=== PATIENT | male | born 1980 | race African-American/Black ===

== ENCOUNTER 2018-02-19 10:28 | Inpatient (IN) ==
[2018-02-19] MEDS ORDERED: MAGNESIUM HYDROXIDE SUSP 30 ML UDCUP PO PRN (13:06)
[2018-02-19] MEDS ORDERED: traMADol 50 MG TABLET PO PRN (13:06)
[2018-02-19] MEDS ORDERED: BISACODYL 5 MG TABLET PO PRN (13:06)
[2018-02-19] MEDS ORDERED: PROMETHAZINE 12.5 MG SUPP RECTAL PRN (13:06)
[2018-02-19] MEDS ORDERED: ONDANSETRON 4 MG/2 ML VIAL IV PRN (13:06)
[2018-02-19] MEDS ORDERED: ACETAMINOPHEN 325 MG TABLET PO PRN ×2 (13:06→13:08)
[2018-02-19] MEDS ORDERED: PROMETHAZINE 25 MG/1 ML VIAL IM PRN (13:06)
[2018-02-19] MEDS ORDERED: PROMETHAZINE 25 MG TABLET PO PRN (13:06)
[2018-02-19] MEDS ORDERED: diphenhydrAMINE CAP 25 MG CAPSULE PO PRN (13:10)
[2018-02-19] MEDS ORDERED: SODIUM CHLORIDE 0.9% 1,000 ML IV PRN (13:10)
[2018-02-19 15:05] LABS: % Iron Saturation 12.5 % (18-50); Ferritin 244.7 ng/ml (26-388)
[2018-02-19] MEDS ORDERED: LIDOCAINE/PRILOCAINE CREAM 5 GM TUBE TOP ONE (15:21)
[2018-02-19] MEDS: SEVELAMER CARBONATE 800 MG TABLET PO SCH (18:12)
[2018-02-19] MEDS: hydrALAZINE 25 MG TABLET PO SCH (18:13)
[2018-02-19] MEDS: SIMVASTATIN 10 MG TABLET PO SCH (22:54)
[2018-02-20] MEDS: hydrALAZINE 25 MG TABLET PO SCH ×3 (08:16→18:42)
[2018-02-20] MEDS: SEVELAMER CARBONATE 800 MG TABLET PO SCH ×3 (08:16→16:38)
[2018-02-20] MEDS: LOSARTAN/HCTZ 50-12.5 MG TABLET PO SCH (08:16)
[2018-02-20] MEDS: PANTOPRAZOLE 40 MG TABLET PO SCH (08:16)
[2018-02-20 12:56] LABS: Hepatitis A Ab IgM Quant 0.14 Index; Hepatitis A Ab IgM Result Negative (Negative); Hepatitis B Core IgM Quant 0.13 Index; Hepatitis B Core IgM Result Negative (Negative); Hepatitis B Surface Ag Quant < 0.10 Index; Hepatitis B Surface Ag Result Negative (Negative); Hepatitis C Virus Ab Quant 0.25 Index; Hepatitis C Virus Ab Result Negative (Negative)
[2018-02-20] MEDS: SIMVASTATIN 10 MG TABLET PO SCH (22:37)
[2018-02-21] MEDS ORDERED: LIDOCAINE/PRILOCAINE CREAM 5 GM TUBE TOP ONE (08:10)
[2018-02-21] MEDS: hydrALAZINE 25 MG TABLET PO SCH ×2 (10:30→14:22)
[2018-02-21] MEDS: LOSARTAN/HCTZ 50-12.5 MG TABLET PO SCH (11:42)
[2018-02-21] MEDS ORDERED: EPOETIN ALFA 10,000 UNIT/1 ML VIAL IV PRN (12:00)
[2018-02-21] MEDS ORDERED: IRON SUCROSE 100 MG/5 ML VIAL IV SCH (12:00)
[2018-02-21] MEDS: PANTOPRAZOLE 40 MG TABLET PO SCH (16:22)
[2018-02-21] MEDS: SEVELAMER CARBONATE 800 MG TABLET PO SCH (16:25)
[2018-02-21 17:25] VITALS: BP 186/99
== END 2018-02-21 16:40 | disposition home or self-care (01) | DRG 682 ==
LOC: N.5E 13:36
PROVIDERS: ADMIT Internal Medicine Nephrology; ATTEND Internal Medicine Nephrology

== ENCOUNTER 2020-01-29 23:42 | Inpatient (IN) ==
[2020-01-29] MEDS ORDERED: ACETAMINOPHEN 500 MG TABLET PO STA (23:50)
[2020-01-29] MEDS ORDERED: ACETAMINOPHEN 500 MG TABLET ONE (23:51)
[2020-01-30 00:22] LABS: Basophils # 0.1 10*3/uL (0.0-0.2); Basophils % 0.3 % (0.0-0.8); Eosinophils % 0.1 % (0.00-10.9); Hematocrit 22.1 VOL% (42.0-52.0); Immature Granulocytes % 1.2 %; Immature Granulocytes Absolute 0.29 #; Lymphocytes # 1.1 10*3/uL (1.4-4.0); Lymphocytes % 4.4 % (21.2-54.2); Mean Corpuscular HGB Conc 31.7 GM/DL (32-36); Mean Corpuscular Volume 90.9 FL (87-102); Mean Platelet Volume 9.6 FL (9.6-12.0); Monocytes % 4.1 % (1.7-12.7); Neutrophils % 89.9 % (38.7-73.9); Platelet Count 314 T/CUMM (130-400); Red Blood Count 2.43 MC/CUMM (3.8-5.5); Red Cell Distribution Width 16.4 % (9.3-17.3); White Blood Count 24.4 T/CUMM (4-12)
[2020-01-30] MEDS ORDERED: LEVOFLOXACIN INJ 500 MG in PREMIX 1 EACH IV STA (00:25)
[2020-01-30 00:41] LABS: PT Patient Result 10.8 SECS (9.8-11.9)
[2020-01-30 01:06] LABS: Albumin 2.5 G/DL (3.4-5.0); Bilirubin,Total 0.5 MG/DL (0.2-1.0); Calcium 9.3 MG/DL (8.5-10.1); Ferritin 3882.8 ng/ml (26-388); Potassium 3.7 MMOL/L (3.5-5.1); Total Protein 8.7 G/DL (6.4-8.3)
[2020-01-30] MEDS ORDERED: hydrALAZINE 20 MG/1 ML VIAL IV STA (01:14)
[2020-01-30] MEDS ORDERED: diphenhydrAMINE CAP 25 MG CAPSULE PO PRN (01:52)
[2020-01-30] MEDS ORDERED: ONDANSETRON 4 MG/2 ML VIAL IV PRN (01:52)
[2020-01-30] MEDS ORDERED: guaiFENesin/DM ER 600-30 MG TABLET PO PRN (01:52)
[2020-01-30] MEDS ORDERED: MORPHINE 4 MG/1 ML VIAL IV PRN (01:52)
[2020-01-30] MEDS ORDERED: DEXTROSE 50% 25 GM/50 ML VIAL IV PRN (01:52)
[2020-01-30] MEDS ORDERED: GLUCAGON 1 MG VIAL IM PRN (01:52)
[2020-01-30] MEDS ORDERED: NICOTINE 21 MG/24 HR PATCH TRANSDERM PRN (01:52)
[2020-01-30 02:01] LABS: Lymphocytes 6 % (20-55); Segmented Neutrophils 92 % (50-85); Total Cells Counted 100
[2020-01-30 02:02] LABS: Hypochromasia 1+; Platelet Estimate Increased
[2020-01-30 02:03] LABS: Microcytosis 1+
[2020-01-30 02:06] LABS: Polychromasia Slight; Stomatocytes Slight; Target Cells Few
[2020-01-30] MEDS ORDERED: PIPERACILLIN/TAZOBACTAM 3,375 MG in SODIUM CHLORIDE 0.9% 100 ML IV SCH (02:30)
[2020-01-30] MEDS: hydrALAZINE 20 MG/1 ML VIAL IV PRN (03:40)
[2020-01-30] MEDS: ACETAMINOPHEN 325 MG TABLET PO PRN (03:45)
[2020-01-30] MEDS ORDERED: SODIUM CHLORIDE 0.9% 1,000 ML IV PRN (06:20)
[2020-01-30] MEDS ORDERED: AZITHROMYCIN INJ 500 MG in SODIUM CHLORIDE 0.9% 250 ML IV SCH (06:30)
[2020-01-30] MEDS: cefTRIAXone 1,000 MG in SYRINGE 1 EACH IV SCH (09:24)
[2020-01-30] MEDS: AZITHROMYCIN 250 MG TABLET PO SCH (09:24)
[2020-01-30] MEDS: ACETYLCYSTEINE 20% 800 MG/4 ML VIAL RESP TX SCH ×2 (17:42→23:57)
[2020-01-30] MEDS: ALBUTEROL 2.5 MG/3 ML NEB RESP TX SCH ×3 (17:42→23:57)
[2020-01-30] MEDS: ENOXAPARIN 120 MG/0.8 ML SYRINGE SUBCUT SCH (17:45)
[2020-01-30] MEDS ORDERED: ALPRAZolam 0.5 MG TABLET PO ONE (19:59)
[2020-01-31] MEDS: ALBUTEROL 2.5 MG/3 ML NEB RESP TX SCH ×7 (03:09→23:41)
[2020-01-31] MEDS: ACETAMINOPHEN 325 MG TABLET PO PRN ×2 (04:14→14:28)
[2020-01-31] MEDS: ACETYLCYSTEINE 20% 800 MG/4 ML VIAL RESP TX SCH ×3 (07:16→23:41)
[2020-01-31] MEDS: cefTRIAXone 1,000 MG in SYRINGE 1 EACH IV SCH (08:14)
[2020-01-31] MEDS: AZITHROMYCIN 250 MG TABLET PO SCH (08:14)
[2020-01-31] MEDS ORDERED: SODIUM CHLORIDE 0.9% 1,000 ML IV PRN (09:06)
[2020-01-31] MEDS ORDERED: VANCOMYCIN INJ 1,000 MG in SODIUM CHLORIDE 0.9% 250 ML IV PRN (11:00)
[2020-01-31 11:25] LABS: Basophils # 0.1 10*3/uL (0.0-0.2); Basophils % 0.4 % (0.0-0.8); Eosinophils % 0.2 % (0.00-10.9); Hemoglobin 8.1 GM/DL (14.0-18.0); Immature Granulocytes Absolute 0.25 #; Lymphocytes # 1.5 10*3/uL (1.4-4.0); Lymphocytes % 5.7 % (21.2-54.2); Mean Corpuscular HGB Conc 31.2 GM/DL (32-36); Mean Corpuscular Volume 91.5 FL (87-102); Mean Platelet Volume 9.8 FL (9.6-12.0); Neutrophils % 86.7 % (38.7-73.9); Platelet Count 262 T/CUMM (130-400); Red Blood Count 2.84 MC/CUMM (3.8-5.5); Red Cell Distribution Width 16.5 % (9.3-17.3); White Blood Count 25.7 T/CUMM (4-12)
[2020-01-31 11:56] LABS: Hypochromasia 2+; Lymphocytes 5 % (20-55); Microcytosis Slight; Polychromasia Slight; Schistocytes Slight; Segmented Neutrophils 90 % (50-85); Total Cells Counted 100
[2020-01-31 11:57] LABS: Platelet Estimate Normal
[2020-01-31] MEDS ORDERED: VANCOMYCIN INJ 2,250 MG in SODIUM CHLORIDE 0.9% 500 ML IV ONE (12:00)
[2020-01-31 12:02] LABS: Calcium 9.4 MG/DL (8.5-10.1); Osmolality,Calculated 272.4 MOS/KG (273-304)
[2020-01-31] MEDS: ENOXAPARIN 120 MG/0.8 ML SYRINGE SUBCUT SCH (17:26)
[2020-01-31] MEDS: MEROPENEM 500 MG in SODIUM CHLORIDE 0.9% 100 ML IV SCH (18:20)
[2020-02-01] MEDS: ACETAMINOPHEN 325 MG TABLET PO PRN ×2 (00:57→18:37)
[2020-02-01] MEDS: ALBUTEROL 2.5 MG/3 ML NEB RESP TX SCH ×6 (03:42→23:08)
[2020-02-01 05:55] LABS: Basophils # 0.1 10*3/uL (0.0-0.2); Basophils % 0.3 % (0.0-0.8); Eosinophils # 0.1 10*3/uL (0.0-0.87); Eosinophils % 0.3 % (0.00-10.9); Hematocrit 26.8 VOL% (42.0-52.0); Hemoglobin 8.3 GM/DL (14.0-18.0); Immature Granulocytes % 1.3 %; Lymphocytes % 8.6 % (21.2-54.2); Mean Corpuscular Volume 91.5 FL (87-102); Mean Platelet Volume 9.7 FL (9.6-12.0); Monocytes % 7.3 % (1.7-12.7); Neutrophils % 82.2 % (38.7-73.9); Platelet Count 293 T/CUMM (130-400); Red Blood Count 2.93 MC/CUMM (3.8-5.5); Red Cell Distribution Width 16.4 % (9.3-17.3)
[2020-02-01 06:35] LABS: Eosinophils 1 % (0-10); Hypochromasia 2+; Lymphocytes 9 % (20-55); Microcytosis 1+; Myelocytes 1 %; Segmented Neutrophils 84 % (50-85); Total Cells Counted 100
[2020-02-01 06:36] LABS: Platelet Estimate Normal; Polychromasia Slight; Target Cells Slight
[2020-02-01 06:50] LABS: Calcium 9.4 MG/DL (8.5-10.1); Osmolality,Calculated 274.4 MOS/KG (273-304)
[2020-02-01 06:51] LABS: Albumin 2.2 G/DL (3.4-5.0); Osmolality,Calculated 274.4 MOS/KG (273-304); Potassium 3.9 MMOL/L (3.5-5.1); Total Protein 9.2 G/DL (6.4-8.3)
[2020-02-01] MEDS: ACETYLCYSTEINE 20% 800 MG/4 ML VIAL RESP TX SCH ×3 (07:34→23:08)
[2020-02-01] MEDS: AZITHROMYCIN 250 MG TABLET PO SCH (09:45)
[2020-02-01] MEDS: MEROPENEM 500 MG in SODIUM CHLORIDE 0.9% 100 ML IV SCH (17:37)
[2020-02-02] MEDS: ALBUTEROL 2.5 MG/3 ML NEB RESP TX SCH ×6 (02:49→23:18)
[2020-02-02 04:02] LABS: Basophils # 0.1 10*3/uL (0.0-0.2); Basophils % 0.3 % (0.0-0.8); Eosinophils # 0.1 10*3/uL (0.0-0.87); Eosinophils % 0.3 % (0.00-10.9); Hematocrit 24.2 VOL% (42.0-52.0); Hemoglobin 7.6 GM/DL (14.0-18.0); Immature Granulocytes % 1.2 %; Immature Granulocytes Absolute 0.26 #; Lymphocytes % 9.4 % (21.2-54.2); Mean Corpuscular HGB Conc 31.4 GM/DL (32-36); Mean Corpuscular Volume 90.3 FL (87-102); Mean Platelet Volume 9.6 FL (9.6-12.0); Monocytes % 7.6 % (1.7-12.7); Neutrophils % 81.2 % (38.7-73.9); Platelet Count 290 T/CUMM (130-400); Red Blood Count 2.68 MC/CUMM (3.8-5.5); Red Cell Distribution Width 16.4 % (9.3-17.3); White Blood Count 21.7 T/CUMM (4-12)
[2020-02-02 04:15] LABS: Calcium 9.9 MG/DL (8.5-10.1); Osmolality,Calculated 280.4 MOS/KG (273-304); Potassium 4.4 MMOL/L (3.5-5.1)
[2020-02-02 04:42] LABS: Anisocytosis 1+; Hypochromasia 2+; Microcytosis 1+; Target Cells Slight
[2020-02-02 04:43] LABS: Platelet Estimate Normal
[2020-02-02] MEDS: ACETYLCYSTEINE 20% 800 MG/4 ML VIAL RESP TX SCH ×3 (07:19→23:18)
[2020-02-02] MEDS: AZITHROMYCIN 250 MG TABLET PO SCH (14:09)
[2020-02-02] MEDS ORDERED: VANCOMYCIN INJ 1,000 MG in SODIUM CHLORIDE 0.9% 250 ML IV ONE (17:00)
[2020-02-02] MEDS: MEROPENEM 500 MG in SODIUM CHLORIDE 0.9% 100 ML IV SCH (17:44)
[2020-02-02] MEDS ORDERED: SIMETHICONE CHEW 125 MG TABLET PO PRN (18:07)
[2020-02-02] MEDS: RIFAMPIN 300 MG CAPSULE PO SCH (22:48)
[2020-02-03] MEDS: ALBUTEROL 2.5 MG/3 ML NEB RESP TX SCH ×6 (03:05→23:41)
[2020-02-03] MEDS: hydrALAZINE 20 MG/1 ML VIAL IV PRN ×2 (05:06→18:03)
[2020-02-03 05:47] LABS: Basophils # 0.1 10*3/uL (0.0-0.2); Basophils % 0.3 % (0.0-0.8); Eosinophils # 0.1 10*3/uL (0.0-0.87); Eosinophils % 0.2 % (0.00-10.9); Hemoglobin 7.7 GM/DL (14.0-18.0); Immature Granulocytes % 1.1 %; Immature Granulocytes Absolute 0.22 #; Lymphocytes # 1.8 10*3/uL (1.4-4.0); Lymphocytes % 8.9 % (21.2-54.2); Mean Corpuscular HGB Conc 30.8 GM/DL (32-36); Mean Corpuscular Volume 91.2 FL (87-102); Mean Platelet Volume 10.2 FL (9.6-12.0); Monocytes % 8.6 % (1.7-12.7); Neutrophils % 80.9 % (38.7-73.9); Platelet Count 284 T/CUMM (130-400); Red Blood Count 2.74 MC/CUMM (3.8-5.5); Red Cell Distribution Width 16.4 % (9.3-17.3); White Blood Count 20.2 T/CUMM (4-12)
[2020-02-03] MEDS ORDERED: ceFAZolin 2,000 MG in PREMIX 1 EACH IV ONE (06:00)
[2020-02-03 06:08] LABS: Calcium 10.3 MG/DL (8.5-10.1); Osmolality,Calculated 278.4 MOS/KG (273-304); Potassium 4.7 MMOL/L (3.5-5.1)
[2020-02-03 07:28] LABS: Hypochromasia Slight; Lymphocytes 12 % (20-55); Platelet Estimate Normal; Segmented Neutrophils 79 % (50-85); Total Cells Counted 100
[2020-02-03] MEDS: ACETYLCYSTEINE 20% 800 MG/4 ML VIAL RESP TX SCH ×3 (07:30→23:41)
[2020-02-03 10:57] LABS: Lymphocytes,Pleural Fluid 88 %; Monocytes,Pleural Fluid 2 %; Neutrophils,Pleural Fluid 10 %
[2020-02-03 11:00] LABS: Amylase,Pleural Fluid 50 U/L; Glucose,Pleural Fluid 86 MG/DL; LDH,Pleural Fluid 231 U/L; Total Protein,Pleural Fluid 5.8 G/DL
[2020-02-03 11:03] LABS: RBC,Pleural Fluid 14578 T/CUMM
[2020-02-03] MEDS ORDERED: AZITHROMYCIN 250 MG TABLET PO SCH (12:00)
[2020-02-03] MEDS: RIFAMPIN 300 MG CAPSULE PO SCH ×2 (12:38→21:00)
[2020-02-03] MEDS: AZITHROMYCIN 250 MG TABLET PO SCH (15:31)
[2020-02-03] MEDS: MEROPENEM 500 MG in SODIUM CHLORIDE 0.9% 100 ML IV SCH (17:39)
[2020-02-03] MEDS: ACETAMINOPHEN 325 MG TABLET PO PRN (21:00)
[2020-02-03] MEDS: ALPRAZolam 0.5 MG TABLET PO PRN (22:11)
[2020-02-04] MEDS: ALBUTEROL 2.5 MG/3 ML NEB RESP TX SCH ×5 (03:26→19:41)
[2020-02-04 06:41] LABS: Basophils % 0.2 % (0.0-0.8); Eosinophils # 0.1 10*3/uL (0.0-0.87); Eosinophils % 0.3 % (0.00-10.9); Hematocrit 23.9 VOL% (42.0-52.0); Hemoglobin 7.5 GM/DL (14.0-18.0); Immature Granulocytes % 2.4 %; Immature Granulocytes Absolute 0.58 #; Lymphocytes # 1.6 10*3/uL (1.4-4.0); Lymphocytes % 6.9 % (21.2-54.2); Mean Corpuscular HGB Conc 31.4 GM/DL (32-36); Mean Corpuscular Volume 89.8 FL (87-102); Mean Platelet Volume 10.1 FL (9.6-12.0); Monocytes % 7.6 % (1.7-12.7); Neutrophils % 82.6 % (38.7-73.9); Platelet Count 292 T/CUMM (130-400); Red Blood Count 2.66 MC/CUMM (3.8-5.5); Red Cell Distribution Width 16.4 % (9.3-17.3); White Blood Count 23.7 T/CUMM (4-12)
[2020-02-04 07:03] LABS: Eosinophils 1 % (0-10); Hypochromasia 2+; Lymphocytes 5 % (20-55); Microcytosis 1+; Platelet Estimate Adequate; Segmented Neutrophils 87 % (50-85); Total Cells Counted 100
[2020-02-04 07:11] LABS: Calcium 9.9 MG/DL (8.5-10.1); Osmolality,Calculated 278.8 MOS/KG (273-304); Potassium 4.6 MMOL/L (3.5-5.1)
[2020-02-04] MEDS: hydrALAZINE 20 MG/1 ML VIAL IV PRN (07:36)
[2020-02-04] MEDS: ACETYLCYSTEINE 20% 800 MG/4 ML VIAL RESP TX SCH (07:43)
[2020-02-04] MEDS ORDERED: LORATADINE 10 MG TABLET PO PRN (09:52)
[2020-02-04] MEDS ORDERED: CINACALCET 30 MG TABLET PO SCH (10:00)
[2020-02-04] MEDS ORDERED: LIDOCAINE 2% 5 ML VIAL ONE (11:34)
[2020-02-04] MEDS ORDERED: propofoL 200 MG/20 ML VIAL IV ONE (11:34)
[2020-02-04] MEDS ORDERED: MIDAZOLAM 2 MG/2 ML VIAL ONE (11:43)
[2020-02-04] MEDS: RIFAMPIN 300 MG CAPSULE PO SCH ×2 (12:40→20:46)
[2020-02-04] MEDS: LOSARTAN 50 MG TABLET PO SCH (12:40)
[2020-02-04] MEDS: carvediloL 12.5 MG TABLET PO SCH ×2 (12:41→20:45)
[2020-02-04] MEDS: SEVELAMER CARBONATE 800 MG TABLET PO SCH ×2 (12:41→17:09)
[2020-02-04] MEDS ORDERED: VANCOMYCIN INJ 1,000 MG in SODIUM CHLORIDE 0.9% 250 ML IV ONE (17:00)
[2020-02-04 18:16] LABS: CEA, Pleural Fluid 1.9 ng/mL
[2020-02-04] MEDS: DOXAZOSIN 4 MG TABLET PO SCH (20:44)
[2020-02-04] MEDS: ALPRAZolam 0.5 MG TABLET PO PRN (20:45)
[2020-02-04] MEDS: PANTOPRAZOLE 40 MG TABLET PO SCH (20:45)
[2020-02-04] MEDS: MEROPENEM 500 MG in SODIUM CHLORIDE 0.9% 100 ML IV SCH (20:46)
[2020-02-04] MEDS ORDERED: DOXAZOSIN 4 MG TABLET PO SCH (21:00)
[2020-02-05] MEDS: ALBUTEROL 2.5 MG/3 ML NEB RESP TX SCH ×7 (00:20→23:41)
[2020-02-05 06:28] LABS: Basophils % 0.1 % (0.0-0.8); Eosinophils # 0.2 10*3/uL (0.0-0.87); Eosinophils % 0.8 % (0.00-10.9); Hematocrit 22.7 VOL% (42.0-52.0); Hemoglobin 7.1 GM/DL (14.0-18.0); Immature Granulocytes Absolute 0.38 #; Lymphocytes # 1.4 10*3/uL (1.4-4.0); Lymphocytes % 7.5 % (21.2-54.2); Mean Corpuscular HGB Conc 31.3 GM/DL (32-36); Mean Corpuscular Volume 90.1 FL (87-102); Mean Platelet Volume 9.9 FL (9.6-12.0); Monocytes % 9.3 % (1.7-12.7); Neutrophils % 80.3 % (38.7-73.9); Platelet Count 271 T/CUMM (130-400); Red Blood Count 2.52 MC/CUMM (3.8-5.5); Red Cell Distribution Width 16.6 % (9.3-17.3); White Blood Count 18.9 T/CUMM (4-12)
[2020-02-05 07:16] LABS: Calcium 9.7 MG/DL (8.5-10.1); Osmolality,Calculated 277.5 MOS/KG (273-304); Potassium 4.5 MMOL/L (3.5-5.1)
[2020-02-05] MEDS: SEVELAMER CARBONATE 800 MG TABLET PO SCH ×3 (09:09→17:04)
[2020-02-05] MEDS: CINACALCET 30 MG TABLET PO SCH ×2 (09:10→17:04)
[2020-02-05] MEDS: PANTOPRAZOLE 40 MG TABLET PO SCH (09:10)
[2020-02-05] MEDS: RIFAMPIN 300 MG CAPSULE PO SCH ×2 (09:10→21:40)
[2020-02-05] MEDS: carvediloL 12.5 MG TABLET PO SCH ×2 (09:11→21:38)
[2020-02-05] MEDS: DOXAZOSIN 4 MG TABLET PO SCH ×2 (09:11→21:41)
[2020-02-05] MEDS: LOSARTAN 50 MG TABLET PO SCH (09:11)
[2020-02-05] MEDS: ALPRAZolam 0.5 MG TABLET PO PRN (21:40)
[2020-02-05] MEDS: MEROPENEM 500 MG in SODIUM CHLORIDE 0.9% 100 ML IV SCH (21:41)
[2020-02-06] MEDS: ALBUTEROL 2.5 MG/3 ML NEB RESP TX SCH ×6 (03:11→23:25)
[2020-02-06] MEDS ORDERED: LIDOCAINE 2% 5 ML VIAL ONE (08:44)
[2020-02-06] MEDS ORDERED: propofoL 200 MG/20 ML VIAL IV ONE (08:44)
[2020-02-06] MEDS ORDERED: KETAMINE 500 MG/10 ML VIAL ONE (08:44)
[2020-02-06] MEDS ORDERED: MIDAZOLAM 2 MG/2 ML VIAL ONE (08:44)
[2020-02-06] MEDS ORDERED: GLYCOPYRROLATE 0.4 MG/2 ML VIAL ONE (08:45)
[2020-02-06] MEDS: SEVELAMER CARBONATE 800 MG TABLET PO SCH ×3 (09:07→17:33)
[2020-02-06] MEDS: carvediloL 12.5 MG TABLET PO SCH ×2 (09:08→21:03)
[2020-02-06] MEDS: DOXAZOSIN 4 MG TABLET PO SCH ×2 (09:08→21:02)
[2020-02-06] MEDS: RIFAMPIN 300 MG CAPSULE PO SCH ×2 (09:08→21:02)
[2020-02-06] MEDS: LOSARTAN 50 MG TABLET PO SCH (09:08)
[2020-02-06] MEDS: PANTOPRAZOLE 40 MG TABLET PO SCH ×2 (09:08→13:06)
[2020-02-06] MEDS: CINACALCET 30 MG TABLET PO SCH ×2 (09:09→18:28)
[2020-02-06] MEDS ORDERED: SODIUM CHLORIDE 0.9% 1,000 ML IV PRN (10:58)
[2020-02-06] MEDS ORDERED: VANCOMYCIN INJ 1,000 MG in SODIUM CHLORIDE 0.9% 250 ML IV ONE (17:00)
[2020-02-06] MEDS: MEROPENEM 500 MG in SODIUM CHLORIDE 0.9% 100 ML IV SCH (22:04)
[2020-02-07] MEDS: ALBUTEROL 2.5 MG/3 ML NEB RESP TX SCH ×6 (02:35→23:15)
[2020-02-07 08:16] LABS: Hematocrit 25.7 VOL% (42.0-52.0); Hemoglobin 8.2 GM/DL (14.0-18.0)
[2020-02-07] MEDS: carvediloL 12.5 MG TABLET PO SCH ×2 (09:55→20:55)
[2020-02-07] MEDS: DOXAZOSIN 4 MG TABLET PO SCH ×2 (09:55→20:55)
[2020-02-07] MEDS: SEVELAMER CARBONATE 800 MG TABLET PO SCH ×3 (09:55→16:33)
[2020-02-07] MEDS: LOSARTAN 50 MG TABLET PO SCH (09:55)
[2020-02-07] MEDS: PANTOPRAZOLE 40 MG TABLET PO SCH (09:55)
[2020-02-07] MEDS: CINACALCET 30 MG TABLET PO SCH ×2 (11:45→17:28)
[2020-02-07] MEDS: RIFAMPIN 300 MG CAPSULE PO SCH ×2 (11:46→20:55)
[2020-02-07] MEDS: MEROPENEM 500 MG in SODIUM CHLORIDE 0.9% 100 ML IV SCH (20:55)
[2020-02-08] MEDS: ALBUTEROL 2.5 MG/3 ML NEB RESP TX SCH ×6 (03:05→23:45)
[2020-02-08 06:11] LABS: Basophils # 0.1 10*3/uL (0.0-0.2); Basophils % 0.4 % (0.0-0.8); Eosinophils # 0.3 10*3/uL (0.0-0.87); Eosinophils % 1.6 % (0.00-10.9); Hematocrit 24.4 VOL% (42.0-52.0); Hemoglobin 7.7 GM/DL (14.0-18.0); Immature Granulocytes Absolute 0.19 #; Lymphocytes % 10.7 % (21.2-54.2); Mean Corpuscular HGB Conc 31.6 GM/DL (32-36); Mean Corpuscular Volume 89.4 FL (87-102); Monocytes % 8.3 % (1.7-12.7); Platelet Count 305 T/CUMM (130-400); Red Blood Count 2.73 MC/CUMM (3.8-5.5); Red Cell Distribution Width 17.2 % (9.3-17.3); White Blood Count 18.3 T/CUMM (4-12)
[2020-02-08] MEDS: carvediloL 12.5 MG TABLET PO SCH ×2 (08:50→20:52)
[2020-02-08] MEDS: SEVELAMER CARBONATE 800 MG TABLET PO SCH ×4 (08:50→17:03)
[2020-02-08] MEDS: DOXAZOSIN 4 MG TABLET PO SCH ×2 (08:51→20:51)
[2020-02-08] MEDS: PANTOPRAZOLE 40 MG TABLET PO SCH (08:51)
[2020-02-08] MEDS: RIFAMPIN 300 MG CAPSULE PO SCH ×2 (08:51→20:51)
[2020-02-08] MEDS: LOSARTAN 50 MG TABLET PO SCH (08:51)
[2020-02-08] MEDS: CINACALCET 30 MG TABLET PO SCH ×2 (08:52→17:03)
[2020-02-09] MEDS: ALBUTEROL 2.5 MG/3 ML NEB RESP TX SCH ×6 (03:07→23:44)
[2020-02-09 06:30] LABS: Basophils # 0.1 10*3/uL (0.0-0.2); Basophils % 0.3 % (0.0-0.8); Eosinophils # 0.4 10*3/uL (0.0-0.87); Eosinophils % 2.1 % (0.00-10.9); Hematocrit 25.2 VOL% (42.0-52.0); Hemoglobin 7.8 GM/DL (14.0-18.0); Immature Granulocytes % 1.5 %; Immature Granulocytes Absolute 0.27 #; Lymphocytes # 1.9 10*3/uL (1.4-4.0); Lymphocytes % 10.4 % (21.2-54.2); Mean Corpuscular Volume 91.3 FL (87-102); Mean Platelet Volume 9.7 FL (9.6-12.0); Neutrophils % 75.7 % (38.7-73.9); Platelet Count 330 T/CUMM (130-400); Red Blood Count 2.76 MC/CUMM (3.8-5.5); White Blood Count 17.9 T/CUMM (4-12)
[2020-02-09 07:15] LABS: Osmolality,Calculated 286.4 MOS/KG (273-304); Potassium 5.1 MMOL/L (3.5-5.1)
[2020-02-09] MEDS: RIFAMPIN 300 MG CAPSULE PO SCH ×2 (08:02→21:35)
[2020-02-09] MEDS: CINACALCET 30 MG TABLET PO SCH ×2 (08:02→19:02)
[2020-02-09] MEDS: PANTOPRAZOLE 40 MG TABLET PO SCH (08:02)
[2020-02-09] MEDS: SEVELAMER CARBONATE 800 MG TABLET PO SCH ×3 (08:02→19:02)
[2020-02-09] MEDS: carvediloL 12.5 MG TABLET PO SCH ×2 (08:03→21:35)
[2020-02-09] MEDS: DOXAZOSIN 4 MG TABLET PO SCH ×2 (08:03→21:35)
[2020-02-09] MEDS: LOSARTAN 50 MG TABLET PO SCH (08:03)
[2020-02-09] MEDS ORDERED: EPOETIN ALFA-EPBX 10,000 UNIT/ML VIAL IV PRN (08:47)
[2020-02-09] MEDS: hydrALAZINE 25 MG TABLET PO SCH ×3 (10:20→21:35)
[2020-02-09] MEDS ORDERED: VANCOMYCIN INJ 1,000 MG in SODIUM CHLORIDE 0.9% 250 ML IV ONE (17:00)
[2020-02-10] MEDS: ALBUTEROL 2.5 MG/3 ML NEB RESP TX SCH ×5 (03:26→19:38)
[2020-02-10] MEDS: SEVELAMER CARBONATE 800 MG TABLET PO SCH ×3 (07:54→17:19)
[2020-02-10] MEDS: DOXAZOSIN 4 MG TABLET PO SCH ×2 (08:13→21:02)
[2020-02-10] MEDS: LOSARTAN 50 MG TABLET PO SCH (08:13)
[2020-02-10] MEDS: hydrALAZINE 25 MG TABLET PO SCH ×3 (08:13→21:02)
[2020-02-10] MEDS: carvediloL 12.5 MG TABLET PO SCH ×2 (08:13→21:02)
[2020-02-10] MEDS: CINACALCET 30 MG TABLET PO SCH ×2 (08:14→17:19)
[2020-02-10] MEDS: RIFAMPIN 300 MG CAPSULE PO SCH (08:14)
[2020-02-10] MEDS: PANTOPRAZOLE 40 MG TABLET PO SCH (08:14)
[2020-02-10 10:31] LABS: CEA, Pleural Fluid 1.1 ng/mL
[2020-02-11] MEDS: ALBUTEROL 2.5 MG/3 ML NEB RESP TX SCH ×7 (00:23→23:10)
[2020-02-11] MEDS: DOXAZOSIN 4 MG TABLET PO SCH ×2 (08:21→21:46)
[2020-02-11] MEDS: CINACALCET 30 MG TABLET PO SCH ×2 (08:22→17:22)
[2020-02-11] MEDS: hydrALAZINE 25 MG TABLET PO SCH ×3 (08:23→21:46)
[2020-02-11] MEDS: SEVELAMER CARBONATE 800 MG TABLET PO SCH ×3 (08:23→17:22)
[2020-02-11] MEDS: LOSARTAN 50 MG TABLET PO SCH (08:24)
[2020-02-11] MEDS: PANTOPRAZOLE 40 MG TABLET PO SCH (08:24)
[2020-02-11] MEDS: carvediloL 12.5 MG TABLET PO SCH ×2 (08:24→21:46)
[2020-02-11] MEDS ORDERED: VANCOMYCIN INJ 1,000 MG in SODIUM CHLORIDE 0.9% 250 ML IV ONE (12:00)
[2020-02-12] MEDS: ALBUTEROL 2.5 MG/3 ML NEB RESP TX SCH ×5 (03:00→19:55)
[2020-02-12] MEDS ORDERED: PANTOPRAZOLE 40 MG TABLET PO ONE (08:44)
[2020-02-12] MEDS: PANTOPRAZOLE 40 MG TABLET PO SCH (09:32)
[2020-02-12] MEDS: hydrALAZINE 25 MG TABLET PO SCH ×3 (09:33→20:52)
[2020-02-12] MEDS: LOSARTAN 50 MG TABLET PO SCH (09:33)
[2020-02-12] MEDS: DOXAZOSIN 4 MG TABLET PO SCH ×2 (09:33→20:52)
[2020-02-12] MEDS: SEVELAMER CARBONATE 800 MG TABLET PO SCH ×3 (09:34→17:08)
[2020-02-12] MEDS: carvediloL 12.5 MG TABLET PO SCH ×2 (09:34→20:52)
[2020-02-12] MEDS: CINACALCET 30 MG TABLET PO SCH ×2 (09:34→17:09)
[2020-02-12 17:23] LABS: Source Pleural
[2020-02-12 17:25] LABS: Adenosine Deaminase Pleural Fl 9
[2020-02-12 17:52] LABS: Source Lft Pleural Fluid
[2020-02-12 17:53] LABS: Adenosine Deaminase Pleural Fl 8
[2020-02-12] MEDS ORDERED: BENZOCAINE/MENTHOL LOZENGE 18/BOX PO PRN (18:18)
[2020-02-13] MEDS: ALBUTEROL 2.5 MG/3 ML NEB RESP TX SCH ×6 (00:05→20:08)
[2020-02-13 05:41] LABS: Hematocrit 23.3 VOL% (42.0-52.0)
[2020-02-13] MEDS: PANTOPRAZOLE 40 MG TABLET PO SCH (05:57)
[2020-02-13] MEDS ORDERED: PANTOPRAZOLE 40 MG TABLET PO SCH (06:30)
[2020-02-13] MEDS ORDERED: propofoL 200 MG/20 ML VIAL IV ONE ×6 (06:33→09:00)
[2020-02-13] MEDS ORDERED: SUCCINYLCHOLINE 200 MG/10 ML VIAL ONE (06:33)
[2020-02-13] MEDS ORDERED: fentaNYL 100 MCG/2 ML VIAL ONE ×3 (06:33→11:01)
[2020-02-13] MEDS ORDERED: MIDAZOLAM 2 MG/2 ML VIAL ONE ×2 (06:33→07:50)
[2020-02-13] MEDS ORDERED: LIDOCAINE 2% 5 ML VIAL ONE (06:33)
[2020-02-13] MEDS ORDERED: BUPIVACAINE MPF 0.25% 30 ML VIAL ONE (06:50)
[2020-02-13] MEDS ORDERED: HEPARIN 5,000 UNIT/1 ML VIAL ONE ×2 (06:51→10:21)
[2020-02-13] MEDS ORDERED: LIDOCAINE 1% 20 ML VIAL ONE (06:51)
[2020-02-13] MEDS ORDERED: DEXMEDETOMIDINE 200 MCG/2 ML VIAL ONE (07:13)
[2020-02-13] MEDS ORDERED: KETAMINE 500 MG/10 ML VIAL ONE (07:13)
[2020-02-13] MEDS ORDERED: ETOMIDATE 40 MG/20 ML VIAL IV ONE ×2 (07:21→09:34)
[2020-02-13] MEDS ORDERED: ONDANSETRON 4 MG/2 ML VIAL ONE (07:25)
[2020-02-13] MEDS ORDERED: SODIUM CHLORIDE 0.9% 1,000 ML IV PRN (08:01)
[2020-02-13] MEDS ORDERED: SODIUM CHLORIDE 0.9% 250 ML IV ONE ×2 (08:10→08:59)
[2020-02-13] MEDS ORDERED: HEPARIN 10,000 UNIT/10 ML VIAL ONE (08:29)
[2020-02-13] MEDS ORDERED: LABETALOL 20 MG/4 ML SYRINGE IV ONE (08:46)
[2020-02-13] MEDS ORDERED: ROCURONIUM 50 MG/5 ML VIAL IV ONE (09:34)
[2020-02-13] MEDS ORDERED: PHENYLEPHRINE 1 MG/10 ML SYRINGE IV ONE (09:35)
[2020-02-13] MEDS ORDERED: PHENYLEPHRINE 10 MG/1 ML VIAL IV ONE (10:12)
[2020-02-13] MEDS ORDERED: GLYCOPYRROLATE 0.4 MG/2 ML VIAL ONE (10:56)
[2020-02-13] MEDS ORDERED: NEOSTIGMINE 10 MG/10 ML VIAL ONE (10:56)
[2020-02-13] MEDS ORDERED: ONDANSETRON 4 MG/2 ML VIAL IV PRN (12:24)
[2020-02-13] MEDS ORDERED: PROMETHAZINE INJ 25 MG in SODIUM CHLORIDE 0.9% 50 ML IV PRN (12:24)
[2020-02-13] MEDS ORDERED: diphenhydrAMINE 50 MG/1 ML VIAL IV PRN (12:24)
[2020-02-13] MEDS: MEPERIDINE 25 MG/1 ML VIAL IV PRN ×2 (12:30→18:08)
[2020-02-13] MEDS ORDERED: SEVOFLURANE 1 UNIT/15 MINUTE INH ONE (12:36)
[2020-02-13] MEDS ORDERED: SODIUM CHLORIDE 0.9% 100 ML IV ONE (12:36)
[2020-02-13] MEDS ORDERED: VANCOMYCIN INJ 750 MG in SODIUM CHLORIDE 0.9% 250 ML IV ONE (13:00)
[2020-02-13] MEDS: carvediloL 12.5 MG TABLET PO SCH ×2 (13:29→20:17)
[2020-02-13] MEDS: CINACALCET 30 MG TABLET PO SCH ×2 (13:30→17:17)
[2020-02-13] MEDS: SEVELAMER CARBONATE 800 MG TABLET PO SCH ×2 (13:30→16:31)
[2020-02-13] MEDS: LOSARTAN 50 MG TABLET PO SCH (13:31)
[2020-02-13] MEDS: DOXAZOSIN 4 MG TABLET PO SCH ×2 (13:31→20:17)
[2020-02-13] MEDS: hydrALAZINE 25 MG TABLET PO SCH ×3 (13:32→20:17)
[2020-02-13 13:39] LABS: Hematocrit 22.2 VOL% (42.0-52.0); Hemoglobin 6.7 GM/DL (14.0-18.0)
[2020-02-13] MEDS ORDERED: PHENOL 1.4% THROAT SPRAY 177 ML BOTTLE PO PRN (15:03)
[2020-02-13] MEDS: ACETAMINOPHEN 325 MG TABLET PO PRN (20:23)
[2020-02-14] MEDS: ALBUTEROL 2.5 MG/3 ML NEB RESP TX SCH ×5 (00:35→16:08)
[2020-02-14] MEDS: ACETAMINOPHEN 325 MG TABLET PO PRN ×3 (01:07→16:40)
[2020-02-14] MEDS: PANTOPRAZOLE 40 MG TABLET PO SCH (05:31)
[2020-02-14] MEDS ORDERED: SODIUM CHLORIDE 0.9% 1,000 ML IV PRN (07:58)
[2020-02-14] MEDS ORDERED: ASPIRIN EC 325 MG TABLET PO SCH (09:00)
[2020-02-14] MEDS ORDERED: KETAMINE 500 MG/10 ML VIAL ONE (09:14)
[2020-02-14] MEDS ORDERED: fentaNYL 100 MCG/2 ML VIAL ONE (09:14)
[2020-02-14] MEDS ORDERED: LIDOCAINE 2% 5 ML VIAL ONE (09:14)
[2020-02-14] MEDS ORDERED: propofoL 200 MG/20 ML VIAL IV ONE (09:14)
[2020-02-14] MEDS ORDERED: MIDAZOLAM 2 MG/2 ML VIAL ONE (09:14)
[2020-02-14] MEDS ORDERED: BUPIVACAINE MPF 0.25% 30 ML VIAL ONE (09:16)
[2020-02-14] MEDS ORDERED: HEPARIN 5,000 UNIT/1 ML VIAL ONE (09:16)
[2020-02-14] MEDS ORDERED: TISSUE ADHESIVE 1 EACH APPLICATOR TOP ONE (09:16)
[2020-02-14] MEDS ORDERED: LIDOCAINE MPF 1% /EPI 30 ML VIAL ONE (09:17)
[2020-02-14] MEDS ORDERED: LIDOCAINE 1% 20 ML VIAL ONE (09:18)
[2020-02-14 11:40] VITALS: BP 165/88
[2020-02-14] MEDS ORDERED: HEPARIN 10,000 UNIT/10 ML VIAL IV PRN (13:45)
[2020-02-14] MEDS: SEVELAMER CARBONATE 800 MG TABLET PO SCH (16:06)
[2020-02-14] MEDS: hydrALAZINE 25 MG TABLET PO SCH (16:06)
[2020-02-14] MEDS: carvediloL 12.5 MG TABLET PO SCH (16:07)
[2020-02-14] MEDS: DOXAZOSIN 4 MG TABLET PO SCH (16:07)
[2020-02-14] MEDS: LOSARTAN 50 MG TABLET PO SCH (16:07)
[2020-02-14] MEDS: CINACALCET 30 MG TABLET PO SCH (16:08)
== END 2020-02-14 16:42 | disposition home or self-care (01) | DRG 853 ==
LOC: N.ED 23:42 → N.EDINP 01-30 01:52 → SUATTDRO 01-30 01:52 → N.EDINP 01-30 03:08 → N.2E 01-30 03:23 → N.5E 01-30 11:54
PROVIDERS: ADMIT Family Medicine; ATTEND Internal Medicine Geriatric Medicine

== ENCOUNTER 2021-06-28 23:09 | Observation (INO) ==
[2021-06-29] MEDS ORDERED: PANTOPRAZOLE 40 MG VIAL IV STA (00:11)
[2021-06-29] MEDS ORDERED: ONDANSETRON 4 MG/2 ML VIAL IV STA (00:11)
[2021-06-29 00:12] LABS: Basophils % 0.4 % (0.0-0.8); Eosinophils # 0.1 10*3/uL (0.0-0.87); Eosinophils % 0.9 % (0.00-10.9); Hematocrit 35.7 VOL% (42.0-52.0); Hemoglobin 11.4 GM/DL (14.0-18.0); Immature Granulocytes % 1.3 %; Immature Granulocytes Absolute 0.07 #; Lymphocytes # 0.8 10*3/uL (1.4-4.0); Lymphocytes % 14.7 % (21.2-54.2); Mean Corpuscular HGB Conc 31.9 GM/DL (32-36); Mean Corpuscular Volume 98.6 FL (87-102); Mean Platelet Volume 11.9 FL (9.6-12.0); Monocytes # 0.6 10*3/uL (0.11-0.8); Monocytes % 10.3 % (1.7-12.7); Neutrophils % 72.4 % (38.7-73.9); Platelet Count 173 T/CUMM (130-400); Red Blood Count 3.62 MC/CUMM (3.8-5.5); Red Cell Distribution Width 14.6 % (9.3-17.3); White Blood Count 5.5 T/CUMM (4-12)
[2021-06-29 00:35] LABS: Alanine Aminotransferase 29 U/L (16-61); Albumin 3.1 G/DL (3.4-5.0); Alkaline Phosphatase 250 U/L (45-117); Aspartate Amino Transferase 13 U/L (0-37); Bilirubin,Total < 0.39 MG/DL (0.20-1.00); Blood Urea Nitrogen 56 MG/DL (7-18); Calcium 9.6 MG/DL (8.5-10.1); Carbon Dioxide 19 MMOL/L (21-32); Chloride 104 MMOL/L (98-107); Glucose 136 MG/DL (74-106); Potassium 3.9 MMOL/L (3.5-5.1); Sodium 136 MMOL/L (136-145); Total Protein 8.3 G/DL (6.4-8.2)
[2021-06-29 00:40] LABS: Band Neutrophils 1 % (0-10); Eosinophils 1 % (0-10); Lymphocytes 17 % (20-55); Total Cells Counted 100
[2021-06-29 00:41] LABS: Platelet Estimate Adequate
[2021-06-29 00:52] LABS: INR 0.9; PT Patient Result 10.4 SECS (10.5-12.0)
[2021-06-29 01:04] LABS: Partial Thromboplastin Time 116.1 SECS (23.8-32.1)
[2021-06-29] MEDS ORDERED: MAGNESIUM SULF RIDER 2 GM/50 ML PREMIX IV STA (01:08)
[2021-06-29] MEDS ORDERED: hydrALAZINE 20 MG/1 ML VIAL IV PRN (04:02)
[2021-06-29] MEDS ORDERED: ONDANSETRON 4 MG/2 ML VIAL IV PRN (04:02)
[2021-06-29] MEDS ORDERED: GLUCAGON 1 MG VIAL IM PRN (04:02)
[2021-06-29] MEDS ORDERED: DEXTROSE 10% 250 ML BAG IV PRN (04:02)
[2021-06-29] MEDS ORDERED: ACETAMINOPHEN 325 MG TABLET PO PRN ×2 (04:02→14:31)
[2021-06-29] MEDS: metroNIDAZOLE INJ 500 MG/100 ML PREMIX IV SCH ×3 (04:45→21:04)
[2021-06-29] MEDS: CIPROFLOXACIN INJ 400 MG/200 ML PREMIX IV SCH (04:45)
[2021-06-29 06:14] LABS: Hematocrit 33.1 VOL% (42.0-52.0); Hemoglobin 10.4 GM/DL (14.0-18.0)
[2021-06-29] MEDS ORDERED: cefTRIAXone 1,000 MG VIAL ONE (07:14)
[2021-06-29] MEDS: PANTOPRAZOLE 40 MG VIAL IV SCH ×2 (11:33→21:04)
[2021-06-29] MEDS ORDERED: HEPARIN 10,000 UNIT/10 ML VIAL IV PRN (12:38)
[2021-06-29] MEDS ORDERED: EPOETIN ALFA-EPBX 10,000 UNIT/ML VIAL IV ONE (13:30)
[2021-06-29] MEDS ORDERED: carvediloL 12.5 MG TABLET PO PRN (14:01)
[2021-06-29] MEDS ORDERED: LORATADINE 10 MG TABLET PO PRN (14:01)
[2021-06-29] MEDS ORDERED: POLYVINYL ALCOHOL 1.4% OPH SOLN 15 ML BOTTLE BOTH EYES PRN (15:49)
[2021-06-29 16:20] LABS: Hematocrit 37.3 VOL% (42.0-52.0); Hemoglobin 12.2 GM/DL (14.0-18.0)
[2021-06-29] MEDS: CINACALCET 30 MG TABLET PO SCH (16:44)
[2021-06-29] MEDS: DOXAZOSIN 4 MG TABLET PO SCH (21:04)
[2021-06-30] MEDS: CINACALCET 30 MG TABLET PO SCH ×2 (02:16→14:55)
[2021-06-30] MEDS: metroNIDAZOLE INJ 500 MG/100 ML PREMIX IV SCH ×3 (03:30→20:52)
[2021-06-30] MEDS: CIPROFLOXACIN INJ 400 MG/200 ML PREMIX IV SCH (04:36)
[2021-06-30 04:39] LABS: Basophils % 0.4 % (0.0-0.8); Eosinophils # 0.1 10*3/uL (0.0-0.87); Eosinophils % 1.2 % (0.00-10.9); Hematocrit 33.4 VOL% (42.0-52.0); Hemoglobin 10.5 GM/DL (14.0-18.0); Immature Granulocytes % 0.6 %; Immature Granulocytes Absolute 0.03 #; Lymphocytes # 1.8 10*3/uL (1.4-4.0); Lymphocytes % 34.4 % (21.2-54.2); Mean Corpuscular HGB Conc 31.4 GM/DL (32-36); Mean Corpuscular Volume 99.4 FL (87-102); Mean Platelet Volume 11.1 FL (9.6-12.0); Monocytes # 1.2 10*3/uL (0.11-0.8); Monocytes % 22.7 % (1.7-12.7); Neutrophils % 40.7 % (38.7-73.9); Platelet Count 165 T/CUMM (130-400); Red Blood Count 3.36 MC/CUMM (3.8-5.5); Red Cell Distribution Width 14.6 % (9.3-17.3); White Blood Count 5.2 T/CUMM (4-12)
[2021-06-30 05:05] LABS: Calcium 9.5 MG/DL (8.5-10.1); Osmolality,Calculated 282.8 MOS/KG (273-304); Potassium 4.3 MMOL/L (3.5-5.1)
[2021-06-30 05:08] LABS: Atypical Lymphocytes Few; Band Neutrophils 2 % (0-10); Eosinophils 1 % (0-10); Lymphocytes 38 % (20-55); Total Cells Counted 100
[2021-06-30 05:10] LABS: Platelet Estimate Adequate
[2021-06-30 05:11] LABS: Microcytosis Slight
[2021-06-30] MEDS: PANTOPRAZOLE 40 MG TABLET PO SCH ×2 (05:36→11:58)
[2021-06-30] MEDS ORDERED: SODIUM CHLORIDE 0.9% 1,000 ML IV SCH (08:00)
[2021-06-30] MEDS ORDERED: LIDOCAINE 2% 5 ML VIAL ONE (09:42)
[2021-06-30] MEDS ORDERED: propofoL 200 MG/20 ML VIAL IV ONE ×2 (09:42→10:00)
[2021-06-30] MEDS: DOXAZOSIN 4 MG TABLET PO SCH ×2 (11:52→20:52)
[2021-06-30] MEDS: LOSARTAN 50 MG TABLET PO SCH (11:52)
[2021-06-30] MEDS ORDERED: BISACODYL 5 MG TABLET PO ONE (12:00)
[2021-06-30] MEDS ORDERED: POLYETHYLENE GLYCOL POWDER 255 GM BOTTLE PO ONE (18:00)
[2021-07-01] MEDS: CINACALCET 30 MG TABLET PO SCH (02:03)
[2021-07-01 05:26] LABS: INR 0.9; PT Patient Result 10.4 SECS (10.5-12.0)
[2021-07-01] MEDS: metroNIDAZOLE INJ 500 MG/100 ML PREMIX IV SCH ×2 (05:40→14:06)
[2021-07-01] MEDS: PANTOPRAZOLE 40 MG TABLET PO SCH (05:40)
[2021-07-01] MEDS ORDERED: SODIUM CHLORIDE 0.9% 1,000 ML IV SCH (08:00)
[2021-07-01] MEDS ORDERED: LIDOCAINE 2% 5 ML VIAL ONE (09:48)
[2021-07-01] MEDS ORDERED: propofoL 200 MG/20 ML VIAL IV ONE ×2 (09:48→09:50)
[2021-07-01] MEDS: CIPROFLOXACIN INJ 400 MG/200 ML PREMIX IV SCH (11:11)
[2021-07-01] MEDS: LOSARTAN 50 MG TABLET PO SCH (11:12)
[2021-07-01] MEDS: DOXAZOSIN 4 MG TABLET PO SCH (11:12)
[2021-07-01 13:53] VITALS: BP 145/85
== END 2021-07-01 13:10 | disposition home or self-care (01) ==
LOC: N.EDINP 23:09 → N.ED 23:09 → SUATTDRO 06-29 04:02 → N.5E 06-29 11:00
PROVIDERS: ADMIT Internal Medicine; ATTEND Internal Medicine
PROC: COLONBX (2021-07-01 09:50)